=== PATIENT | female | born 1940 | race Two or more races ===

== ENCOUNTER → 2020-05-31 | Outpatient (CLI) | payer OTHER | END | disposition home or self-care (01) | LOC: SONOGRAMA 09:05 | PROVIDERS: ATTEND Pathology Anatomic Pathology | DX: E04.1 Nontoxic single thyroid nodule (principal) ==

== ENCOUNTER 2022-08-07 20:03 | Inpatient (IN) | payer OTHER ==
[2022-08-07] MEDS ORDERED: SYNTHROID88 MCG (20:19)
[2022-08-07] MEDS ORDERED: LOSARTAN POTASS50 MG (20:20)
[2022-08-07] MEDS ORDERED: ANASTROZOLE1 MG (20:20)
[2022-08-07] MEDS ORDERED: NITROFURANTOIN100 M1 (20:20)
[2022-08-07] MEDS ORDERED: ROSUVASTATIN CA10 MG (20:20)
[2022-08-07] MEDS ORDERED: FAMOTIDINE20 MG (20:22)
[2022-08-07] MEDS ORDERED: ONDANSETRON ODT8 MG (20:22)
[2022-08-26] MEDS ORDERED: Neurin-Sl Tablet Sl SL (17:10)
[2022-08-26] MEDS ORDERED: ZOFRAN8 MG PO (17:10)
[2022-08-26] MEDS ORDERED: LEVOTHYROXINE88 MCG PO (17:10)
[2022-08-26] MEDS ORDERED: INTEGRA PLUS C1 EACH PO (17:10)
[2022-08-26] MEDS ORDERED: LIDODERM1 EACH TOP (17:10)
[2022-08-26] MEDS ORDERED: AMLODIPINE BESYL5 MG PO (17:10)
== END 2022-08-26 19:51 | disposition home or self-care (01) | DRG 640 ==
LOC: ER 20:03 → SURH 08-08 02:07
PROVIDERS: ADMIT Internal Medicine; ATTEND Internal Medicine
PROC: BW21ZZZ Computerized Tomography (CT Scan) of Abdomen and Pelvis (ICD-10-PCS; 2022-08-07)
PROC: 02HV33Z Insertion of Infusion Device into Superior Vena Cava, Percutaneous Approach (ICD-10-PCS; 2022-08-09)
PROC: B24BYZZ Ultrasonography of Heart with Aorta using Other Contrast (ICD-10-PCS; 2022-08-09)
PROC: CW1NLZZ Planar Nuclear Medicine Imaging of Whole Body using Gallium 67 (Ga-67) (ICD-10-PCS; 2022-08-10)
PROC: 30243N1 Transfusion of Nonautologous Red Blood Cells into Central Vein, Percutaneous Approach (ICD-10-PCS; principal; 2022-08-15)
DX: E86.0 Dehydration (principal); N17.0 Acute kidney failure with tubular necrosis; C91.10 Chronic lymphocytic leukemia of B-cell type not having achieved remission; K90.49 Malabsorption due to intolerance, not elsewhere classified; N39.0 Urinary tract infection, site not specified; E87.20 Acidosis, unspecified; E87.0 Hyperosmolality and hypernatremia; I13.10 Hypertensive heart and chronic kidney disease without heart failure, with stage 1 through stage 4 chronic kidney disease, or unspecified chronic kidney disease; N18.9 Chronic kidney disease, unspecified; D63.1 Anemia in chronic kidney disease; B96.20 Unspecified Escherichia coli [E. coli] as the cause of diseases classified elsewhere; E83.51 Hypocalcemia; E86.9 Volume depletion, unspecified; N21.0 Calculus in bladder; E03.9 Hypothyroidism, unspecified; K57.30 Diverticulosis of large intestine without perforation or abscess without bleeding; M54.50 Low back pain, unspecified; Z85.3 Personal history of malignant neoplasm of breast